=== PATIENT | female | born 1990 | race Caucasian/White ===

== ENCOUNTER 2018-06-17 07:40 | Inpatient (IN) ==
[2018-06-17] MEDS ORDERED: LACTATED RINGERS 1,000 ML IV PRN (08:31)
[2018-06-17] MEDS ORDERED: BUTORPHANOL 2 MG/ML VIAL IV PRN (08:31)
[2018-06-17 08:55] LABS: Basophils # 0.1 10*3/uL (0.0-0.2); Basophils % 0.3 % (0.0-0.8); Eosinophils # 0.1 10*3/uL (0.0-0.87); Eosinophils % 0.7 % (0.00-10.9); Hematocrit 32.5 VOL% (35.7-47.0); Hemoglobin 10.9 GM/DL (12.0-16.0); Immature Granulocytes % 1.1 %; Immature Granulocytes Absolute 0.21 #; Lymphocytes # 2.5 10*3/uL (1.4-4.0); Lymphocytes % 13.7 % (21.3-54.2); Mean Corpuscular HGB Conc 33.5 GM/DL (32-36); Mean Corpuscular Hemoglobin 30 PG (27-34); Mean Platelet Volume 11.2 FL (9.6-12.0); Monocytes # 1.2 10*3/uL (0.11-0.8); Monocytes % 6.7 % (1.7-12.7); Neutrophils # 14.2 10*3/uL (1.4-7.4); Neutrophils % 77.5 % (38.7-73.9); Platelet Count 246 T/CUMM (130-400); Red Blood Count 3.65 MC/CUMM (3.8-5.5); Red Cell Distribution Width 12.3 % (9.3-17.3); White Blood Count 18.3 T/CUMM (4-12)
[2018-06-17] MEDS: LACTATED RINGERS 1,000 ML IV SCH ×3 (09:00→17:53)
[2018-06-17] MEDS ORDERED: OXYTOCIN/LR 20 UNIT/1,000 ML BAG IV SCH (09:00)
[2018-06-17] MEDS: ONDANSETRON 4 MG/2 ML VIAL IV PRN ×2 (09:16→20:46)
[2018-06-17] MEDS ORDERED: diphenhydrAMINE 50 MG/1 ML VIAL IV PRN (12:01)
[2018-06-17] MEDS ORDERED: ePHEDrine 50 MG/ML AMP IV PRN (12:01)
[2018-06-17] MEDS ORDERED: NALOXONE 0.4 MG/ML VIAL IV PRN (12:06)
[2018-06-17] MEDS ORDERED: fentaNYL 2 MCG/ROPIV 0.2% EPID 100 ML EPIDURAL SCH (12:30)
[2018-06-17] MEDS ORDERED: CITRIC ACID/SODIUM CITRATE 30 ML UDCUP ONE (12:33)
[2018-06-17] MEDS ORDERED: CARBOPROST TROMETHAMINE 250 MCG/ML AMP IM ONE (12:34)
[2018-06-17] MEDS ORDERED: TRANEXAMIC ACID 1,000 MG/10 ML VIAL ONE (12:35)
[2018-06-17] MEDS ORDERED: miSOPROStol 200 MCG TABLET ONE (12:35)
[2018-06-17] MEDS ORDERED: FAMOTIDINE 20 MG/2 ML VIAL IV ONE (12:37)
[2018-06-17] MEDS ORDERED: CITRIC ACID/SODIUM CITRATE 30 ML UDCUP PO ONE (12:37)
[2018-06-17 14:54] LABS: Apearance,Urine CLEAR (Clear); Bilirubin,Urine Negative (Negative); Blood, Urine Negative (Negative); Glucose,Urine (UA) Negative (Negative); Ketones,Urine 5 mg/dL (Negative); Nitrite,Urine Negative (Negative); Protein,Urine Negative; RBC,Urine <1 /HPF (0-4); Urine Color Colorless (Yellow); Urine Specific Gravity 1.003 (1.001-1.035); Urine Urobilinogen < 2.0 EU/DL (0.2-1.0)
[2018-06-17] MEDS ORDERED: LIDOCAINE 1% 50 ML VIAL ONE (21:13)
[2018-06-17] MEDS ORDERED: METHYLERGONOVINE 0.2 MG/1 ML AMP IM ONE (21:48)
[2018-06-17] MEDS ORDERED: LANOLIN 50% CREAM 0.3 OZ TUBE TOP PRN (22:05)
[2018-06-17] MEDS ORDERED: ONDANSETRON 4 MG/2 ML VIAL IV PRN (22:05)
[2018-06-17] MEDS ORDERED: oxyCODONE/ACETAMINOPHEN 5-325 MG TABLET PO PRN ×2 (22:05)
[2018-06-17] MEDS ORDERED: DIPH/TET/ACEL PERT BOOSTER VACCINE 0.5 ML VIAL IM ONE (22:05)
[2018-06-17] MEDS ORDERED: WITCH HAZEL PADS 100/JAR TOP PRN (22:05)
[2018-06-17] MEDS ORDERED: HYDROCORTISONE 2.5% RECTAL CREAM 30 GM TUBE TOP PRN (22:05)
[2018-06-17] MEDS ORDERED: BISACODYL 10 MG SUPP RECTAL PRN (22:05)
[2018-06-17] MEDS ORDERED: BENZOCAINE 20%/MENTHOL 0.5% SPRAY 56 GM CAN TOP PRN (22:05)
[2018-06-17] MEDS ORDERED: MEASLES/MUMPS/RUBELLA VACCINE 0.5 ML VIAL SUBCUT ONE (22:05)
[2018-06-17] MEDS ORDERED: RHO(D) IMMUNE GLOBULIN 300 MCG SYRINGE IM ONE (22:05)
[2018-06-17] MEDS ORDERED: ACETAMINOPHEN 325 MG TABLET PO PRN (22:05)
[2018-06-17] MEDS ORDERED: OXYTOCIN/LR 20 UNIT/1,000 ML BAG IV ONE (22:05)
[2018-06-17 22:26] LABS: Cord Venous Blood HCO3 22.7 MMOL/L; Cord Venous Blood PCO2 37.9 MMHG; Cord Venous Blood PO2 29.7
[2018-06-17 22:29] LABS: Cord Arterial Blood HCO3 20.5 MMOL/L
[2018-06-18] MEDS: IBUPROFEN 800 MG TABLET PO PRN ×3 (02:40→18:45)
[2018-06-18 04:59] LABS: Basophils # 0.1 10*3/uL (0.0-0.2); Basophils % 0.2 % (0.0-0.8); Eosinophils # 0.1 10*3/uL (0.0-0.87); Eosinophils % 0.2 % (0.00-10.9); Hemoglobin 10.2 GM/DL (12.0-16.0); Immature Granulocytes % 0.7 %; Immature Granulocytes Absolute 0.15 #; Lymphocytes # 2.4 10*3/uL (1.4-4.0); Lymphocytes % 10.5 % (21.3-54.2); Mean Corpuscular HGB Conc 32.9 GM/DL (32-36); Mean Corpuscular Hemoglobin 30 PG (27-34); Mean Corpuscular Volume 90.1 FL (87-102); Mean Platelet Volume 12.1 FL (9.6-12.0); Monocytes # 1.8 10*3/uL (0.11-0.8); Monocytes % 7.9 % (1.7-12.7); Neutrophils # 18.3 10*3/uL (1.4-7.4); Neutrophils % 80.5 % (38.7-73.9); Platelet Count 220 T/CUMM (130-400); Red Blood Count 3.44 MC/CUMM (3.8-5.5); Red Cell Distribution Width 12.5 % (9.3-17.3); White Blood Count 22.8 T/CUMM (4-12)
[2018-06-18] MEDS: DOCUSATE SODIUM 100 MG CAPSULE PO SCH ×2 (09:49→22:13)
[2018-06-19] MEDS: IBUPROFEN 800 MG TABLET PO PRN ×2 (00:28→08:21)
[2018-06-19 07:46] VITALS: BP 112/63
[2018-06-19] MEDS: DOCUSATE SODIUM 100 MG CAPSULE PO SCH (08:21)
== END 2018-06-19 12:35 | disposition home or self-care (01) | DRG 807 ==
LOC: N.LDOUT 07:40 → N.LD 07:42 → N.OB 06-18 01:13
PROVIDERS: ADMIT Obstetrics & Gynecology; ATTEND Obstetrics & Gynecology

== ENCOUNTER 2020-11-21 21:41 | Inpatient (IN) ==
[2020-11-21] MEDS ORDERED: MEPERIDINE 50 MG/1 ML VIAL IV PRN (21:50)
[2020-11-21 22:30] LABS: Basophils % 0.1 % (0.0-0.8); Hematocrit 28.3 VOL% (35.7-47.0); Hemoglobin 8.6 GM/DL (12.0-16.0); Immature Granulocytes % 1.2 %; Immature Granulocytes Absolute 0.19 #; Lymphocytes # 1.2 10*3/uL (1.4-4.0); Mean Corpuscular HGB Conc 30.4 GM/DL (32-36); Mean Corpuscular Volume 79.7 FL (87-102); Mean Platelet Volume 11.5 FL (9.6-12.0); Monocytes % 1.8 % (1.7-12.7); Neutrophils % 89.9 % (38.7-73.9); Platelet Count 311 T/CUMM (130-400); Red Blood Count 3.55 MC/CUMM (3.8-5.5); Red Cell Distribution Width 14.2 % (9.3-17.3); White Blood Count 16.3 T/CUMM (4-12)
[2020-11-21 22:56] LABS: Albumin 2.8 G/DL (3.4-5.0); Bilirubin,Total 0.4 MG/DL (0.2-1.0); Calcium 8.8 MG/DL (8.5-10.1); Osmolality,Calculated 272.5 MOS/KG (273-304); Potassium 4.2 MMOL/L (3.5-5.1); Total Protein 7.3 G/DL (6.4-8.2)
[2020-11-22] MEDS: LACTATED RINGERS 1,000 ML IV SCH ×2 (01:28→08:41)
[2020-11-22] MEDS: ONDANSETRON 4 MG/2 ML VIAL IV PRN ×3 (04:41→18:55)
[2020-11-22] MEDS ORDERED: hydrOXYzine HCL 25 MG/1 ML VIAL IM PRN (07:37)
[2020-11-22] MEDS ORDERED: ePHEDrine 50 MG/ML VIAL IV PRN (07:37)
[2020-11-22] MEDS ORDERED: LACTATED RINGERS 1,000 ML IV ONE (07:37)
[2020-11-22] MEDS ORDERED: NALOXONE 0.4 MG/ML VIAL IV PRN (07:37)
[2020-11-22] MEDS ORDERED: diphenhydrAMINE 50 MG/1 ML VIAL IV PRN ×2 (07:37)
[2020-11-22] MEDS ORDERED: OXYTOCIN/LR 20 UNIT/1,000 ML BAG IV SCH (08:00)
[2020-11-22] MEDS ORDERED: fentaNYL 2 MCG/ROPIV 0.2% EPID 100 ML EPIDURAL SCH (08:00)
[2020-11-22] MEDS ORDERED: FAMOTIDINE 20 MG/2 ML VIAL IV ONE (09:30)
[2020-11-22] MEDS ORDERED: CITRIC ACID/SODIUM CITRATE 30 ML UDCUP PO ONE (09:30)
[2020-11-22 12:43] LABS: Bilirubin,Urine Negative (Negative); Blood, Urine Negative (Negative); Glucose,Urine (UA) Negative (Negative); Ketones,Urine Negative (Negative); Nitrite,Urine Negative (Negative); Protein,Urine Negative; RBC,Urine <1 /HPF (0-4); Squamous Epithelial Cell,Urine Occasional /HPF (0-10); Urine Appearance CLEAR (Clear); Urine Color Colorless (Yellow); Urine Specific Gravity 1.003 (1.001-1.035); Urine Urobilinogen < 2.0 EU/DL (0.2-1.0)
[2020-11-22] MEDS ORDERED: miSOPROStoL 200 MCG TABLET ONE (12:56)
[2020-11-22] MEDS ORDERED: TRANEXAMIC ACID 1,000 MG/10 ML VIAL ONE (12:56)
[2020-11-22] MEDS ORDERED: METHYLERGONOVINE 0.2 MG/1 ML AMP ONE (12:57)
[2020-11-22] MEDS ORDERED: CARBOPROST TROMETHAMINE 250 MCG/ML AMP IM ONE (12:57)
[2020-11-22] MEDS ORDERED: OXYTOCIN/LR 0 UNIT/0 ML BAG IV ONE (12:57)
[2020-11-22] MEDS ORDERED: SODIUM CHLORIDE 0.9% 0 ML IV ONE (12:58)
[2020-11-22 14:30] LABS: Cord Arterial Blood HCO3 22.7 MMOL/L
[2020-11-22 14:33] LABS: Cord Venous Blood HCO3 24.6 MMOL/L; Cord Venous Blood PO2 28.1
[2020-11-22] MEDS ORDERED: HYDROCORTISONE 2.5% RECTAL CREAM 30 GM TUBE TOP PRN (15:28)
[2020-11-22] MEDS ORDERED: OXYTOCIN/LR 20 UNIT/1,000 ML BAG IV ONE (15:28)
[2020-11-22] MEDS ORDERED: BISACODYL 10 MG SUPP RECTAL PRN (15:28)
[2020-11-22] MEDS ORDERED: oxyCODONE/ACETAMINOPHEN 5-325 MG TABLET PO PRN ×2 (15:28)
[2020-11-22] MEDS ORDERED: MEASLES/MUMPS/RUBELLA VACCINE 0.5 ML VIAL SUBCUT ONE (15:28)
[2020-11-22] MEDS ORDERED: BENZOCAINE 20%/MENTHOL 0.5% SPRAY 56 GM CAN TOP PRN (15:28)
[2020-11-22] MEDS ORDERED: ONDANSETRON 4 MG/2 ML VIAL IV PRN (15:28)
[2020-11-22] MEDS ORDERED: DIPH/TET/ACEL PERT BOOSTER VACCINE 0.5 ML VIAL IM ONE (15:28)
[2020-11-22] MEDS ORDERED: RHO(D) IMMUNE GLOBULIN 300 MCG SYRINGE IM ONE (15:28)
[2020-11-22] MEDS ORDERED: WITCH HAZEL PADS 100/JAR TOP PRN (15:28)
[2020-11-22] MEDS ORDERED: LANOLIN 50% CREAM 0.3 OZ TUBE TOP PRN (15:28)
[2020-11-22] MEDS: IBUPROFEN 800 MG TABLET PO PRN ×2 (16:26→22:25)
[2020-11-22] MEDS: DOCUSATE SODIUM 100 MG CAPSULE PO SCH (20:48)
[2020-11-23] MEDS: IBUPROFEN 800 MG TABLET PO PRN ×3 (04:00→18:18)
[2020-11-23 04:35] LABS: Basophils % 0.3 % (0.0-0.8); Eosinophils # 0.1 10*3/uL (0.0-0.87); Eosinophils % 0.4 % (0.00-10.9); Hematocrit 25.7 VOL% (35.7-47.0); Hemoglobin 7.8 GM/DL (12.0-16.0); Immature Granulocytes % 0.8 %; Immature Granulocytes Absolute 0.13 #; Lymphocytes # 3.2 10*3/uL (1.4-4.0); Lymphocytes % 20.3 % (21.3-54.2); Mean Corpuscular HGB Conc 30.4 GM/DL (32-36); Mean Corpuscular Volume 79.3 FL (87-102); Mean Platelet Volume 11.5 FL (9.6-12.0); Monocytes % 5.9 % (1.7-12.7); Neutrophils % 72.3 % (38.7-73.9); Platelet Count 246 T/CUMM (130-400); Red Blood Count 3.24 MC/CUMM (3.8-5.5); Red Cell Distribution Width 14.4 % (9.3-17.3)
[2020-11-23] MEDS: DOCUSATE SODIUM 100 MG CAPSULE PO SCH ×2 (08:31→20:39)
[2020-11-23] MEDS: ACETAMINOPHEN 325 MG TABLET PO PRN ×2 (08:31→15:32)
[2020-11-24] MEDS ORDERED: ONDANSETRON ODT 4 MG TABLET PO PRN (03:27)
[2020-11-24] MEDS: ACETAMINOPHEN 325 MG TABLET PO PRN (03:39)
[2020-11-24 08:17] VITALS: BP 115/64
[2020-11-24] MEDS: DOCUSATE SODIUM 100 MG CAPSULE PO SCH (08:48)
[2020-11-24] MEDS ORDERED: FERROUS SULFATE 325 MG TABLET PO SCH (09:00)
== END 2020-11-24 12:15 | disposition home or self-care (01) | DRG 807 ==
LOC: N.LDOUT 21:41 → N.LD 21:43 → N.OB 11-22 17:42
PROVIDERS: ADMIT Specialist; ATTEND Specialist